=== PATIENT | female | born 1990 | race Caucasian/White ===

== ENCOUNTER 2017-12-01 15:59 | Emergency (ER) | payer OTHER ==
[2017-12-01 16:00] VITALS: BMI 26.5
[2017-12-01 16:05] VITALS: BP 122/86; PULSE 84; RESP 18; TEMP 97.5; O2SAT 100
--- NOTE | 2017-12-01 17:24 | C.PDOC ---
History Of Present Illness 27 year old female, with no pmh, c/o of a foreign body in left ear from an ear bud x 1 hr with pain. denies any other medical complaints. Time Seen by Provider: 12/01/17 16:07 Chief Complaint (Nursing): Foreign Body History Per: Patient History/Exam Limitations: None Onset/Duration Of Symptoms: Hrs (today) Current Symptoms Are (Timing): Still Present Quality (Ear): Foreign Body Past Medical History Reviewed: Historical Data, Nursing Documentation, Vital Signs Vital Signs: Last Vital Signs Temp 97.5 F L 12/01/17 16:01 Pulse 84 12/01/17 16:01 Resp 18 12/01/17 16:01 BP 122/86 12/01/17 16:01 Pulse Ox 100 12/01/17 21:27 - Medical History PMH: No Chronic Diseases Surgical History: No Surg Hx - [facility] Procedures EXTRACTION OF POC, LOW CERVICAL, OPEN APPROACH (11/24/15) Family History: States: Unknown Family Hx - Social History Hx Tobacco Use: Yes (Current some days smoker) Hx Alcohol Use: No Hx Substance Use: No - Immunization History Hx Tetanus Toxoid Vaccination: No Hx Influenza Vaccination: Yes Hx Pneumococcal Vaccination: No Review Of Systems ENT: Positive for: Ear Pain (left ear foreign body) Physical Exam - Physical Exam Appears: No Acute Distress Skin: Normal Color, Warm, Dry Head: Atraumatic, Normacephalic Eye(s): bilateral: Normal Inspection Ear(s): Left: Other (plastic object seen in ear, tm not visualized), Right: Normal Neurological/Psych: Oriented x3, Normal Speech, Normal Cognition ED Course And Treatment O2 Sat by Pulse Oximetry: 100 (RA) Pulse Ox Interpretation: Normal Medical Decision Making Medical Decision Making: Initial Impression: Foreign body Initial Plan: --Tylenol 325mg tab 975 mg PO -plastic foreign body in ear, successfully removed with alligator clip. exam s/ p fb removal shows normal TM with erythema in canal, will d/c with drops. Disposition Counseled Patient/Family Regarding: Diagnosis, Need For Followup, Rx Given - Disposition Referrals: Kendall Reese DO [Staff Provider] - Disposition: HOME/ ROUTINE Disposition Time: 17:25 Condition: IMPROVED Additional Instructions: Please use drops in ear as directed. Tylenol or Motrin for pain. Follow up with your doctor in a few days. Prescriptions: Neomycin/Polymyxin/Hydrocort [Cortisporin Opht Susp] 1 drop Q6 #1 bottle Instructions: Foreign Body in Ear, Child (DC) Forms: [facility] (Ukrainian), General Discharge Instructions - Clinical Impression Clinical Impression: Ear foreign body - Scribe Statement The provider has reviewed the documentation as recorded by the Scribe Ubaldo Cunningham All medical record entries made by the Scribe were at my direction and personally dictated by me. I have reviewed the chart and agree that the record accurately reflects my personal performance of the history, physical exam, medical decision making, and the department course for this patient. I have also personally directed, reviewed, and agree with the discharge instructions and disposition.
== END 2017-12-01 17:31 | disposition home or self-care (01) ==
LOC: C.ER 15:59
DX: T16.2XXA Foreign body in left ear, initial encounter (principal); X58.XXXA Exposure to other specified factors, initial encounter